=== PATIENT | male | born 1980 | race Caucasian/White ===

== ENCOUNTER 2021-05-06 09:15 | Emergency (ER) | payer BC, SELFPAY ==
[2021-05-06 09:40] VITALS: BP 127/73; PULSE 59; RESP 18; TEMP 36.6; O2SAT 99; BMI 23.7
--- NOTE | 2021-05-06 09:43 | DI.RAD.S_ITS ---
PROCEDURE: XR SHOULDER RT MIN 2V INDICATIONS: swelling, direct blow injury. TECHNIQUE: 4 views of the shoulder were acquired. COMPARISON: None. FINDINGS: Bones: There is a displaced and comminuted fracture of the superior scapular body. Remaining osseous structures intact. No suspicious bony lesions. Visualized ribs appear intact. Soft tissues: No suspicious soft tissue calcifications. IMPRESSION: Displaced and comminuted fracture of the superior scapular body. Dictated by: Ralph Lira M.D. on 05/06/2021 at 10:16 Approved by: Ralph Lira M.D. on 05/06/2021 at 10:17
--- NOTE | 2021-05-06 13:30 | ED_ITS ---
HPI - Extremity Injury (Upper) General Chief Complaint: Extremity Injury, Upper Stated Complaint: fell and hurt right shoulder last night Time Seen by Provider: 05/06/21 13:30 Source: patient Mode of arrival: Ambulatory Limitations: no limitations History of Present Illness HPI narrative: A 40-year-old healthy male with no known medical issues who lives in [facility]. Patient and his significant other were camping on 1 of the [facility] when he was sitting on a log and fell backwards about 1-2 T down onto hard packed dirt possibly a rock and had pain in his right shoulder. Patient has continued to have significant discomfort he denies any neck pain. He denies any midline pain. He does describes as in his scapula. It is worse with movement. He denies getting knocked out, loss of consciousness, no chest pain or shortness of breath, no nausea or vomiting. No numbness, tingling or weakness in his extremities. He does have increased pain with movement of his upper extremity particularly at the shoulder. Patient denies any major surgical interventions. No daily medications. He denies any allergies to medications Related Data Previous Rx's Medication Instructions Recorded hydrocodone 5 mg-acetaminophen 325 1 tab PO Q6H PRN #14 tab 05/06/21 mg tablet Allergies Allergy/AdvReac Type Severity Reaction Status Date / Time No Known Drug Allergies Allergy Verified 05/06/21 13:58 Review of Systems Review of Systems ROS Unobtainable: All systems reviewed & are unremarkable except as noted in HPI and below Patient History Social History Smoking Status: Never smoker Smoking Status: Never smoker alcohol intake frequency: 0-2 drinks per day Substance Use Type: marijuana Exam Narrative Exam Narrative: GEN: Patient appears in moderate distress. HEAD: No evidence of trauma, no raccoon/Heard sign. NECK: Nontender, painless range of motion, trachea midline Negative for Nexus criteria, there is no line tenderness, distracting injury, altered mental status, neuro deficit, recent EtOH. EYES: PERRLA, EOMI ENT: External inspection normal, trachea is midline, no dental or oral injury, airway is normal and with normal occlusion, No bony tenderness RESP: Chest is nontender and has symmetric movement, no ecchymosis, breath sounds are normal no crackles, wheezes or rales CVS: Heart sounds are normal, no murmur noted, No JVD. ABG/GI: Nontender, soft, normal bowel sounds, no distention, no organomegaly NEURO: Oriented AOx3, neuro is grossly intact, sensation and motor is normal all 4 extremities moving, cranial nerves II through XII are intact, GCS is 15 PSYCH: Normal mood and affect SKIN: Intact, warm and dry, no crepitus and without decubitus BACK: No CVA tenderness, no vertebral tenderness, no step-off's, no crepitus EXT: Atraumatic, except for tenderness over the right scapula. Patient does not have any other tenderness of his right upper extremity. Patient has full range of motion of his fingers, wrist, forearm and elbow. Hips are nontender, normal color and temperature, 2+ radial pulse. Patient has normal gait. Initial Vital Signs Initial Vital Signs: Vital Signs Temperature 97.9 F 05/06/21 09:40 Pulse Rate 59 L 05/06/21 09:40 Respiratory Rate 18 05/06/21 09:40 Blood Pressure 127/73 05/06/21 09:40 Pulse Oximetry 99 05/06/21 09:40 Course Orders Ordered: Discontinued Medications Hydrocodone Bitart/Acetaminophen (Hydrocodone/Acet 5/325 Tablet) 1 tab PO NOW ONE Stop: 05/06/21 13:32 Last Admin: 05/06/21 13:57 Dose: 1 tab Documented by: SOWMYA Consultations Consultation #1: Dr. Lazaro, with orthopedic surgery reviewed patient's films. Plan to follow-up outpatient. Conservative measures defers any CT imaging at this time. Vital Signs Vital signs: Vital Signs - 8 hr 05/06/21 14:41 Pulse Rate 54 L Respiratory Rate 16 Blood Pressure 122/84 Pulse Oximetry 99 MDM - Extremity Injury (Upper) Imaging Data Extremity x-ray #1: Radiologist's Impression: [address] [id number] ReportSigned Patient: Bria Mccurdy#: [id number]: 1980Acct:[id number]/Sex: 40 / MDate of Service: 05/06/21Loc: EDAccession Number: [id number] Procedure: XR shoulder RT min 2V Ordering Provider: Aaliyah Powell D.O. PROCEDURE: XR SHOULDER RT MIN 2V INDICATIONS: swelling, direct blow injury. TECHNIQUE: 4 views of the shoulder were acquired. COMPARISON: None. FINDINGS: Bones: There is a displaced and comminuted fracture of the superior scapular body. Remaining osseous structures intact. No suspicious bony lesions. Visualized ribs appear intact. Soft tissues: No suspicious soft tissue calcifications. IMPRESSION: Displaced and comminuted fracture of the superior scapular body. Dictated by: Ralph Lira M.D. on 05/06/2021 at 10:16 Approved by: Ralph Lira M.D. on 05/06/2021 at 10:17 MDM Narrative Medical decision making narrative: 40-year-old male with appears to be isolated scapular fracture with the low energy mechanism patient x-ray does show fracture. Patient is in sling currently. Patient was given Bowie here for pain. He lives in [place] and is returning in the next week. His is able to help him secure orthopedic follow-up she has a close connection with an office there locally but patient was also given referral here if needed. Velma ent was given a disc with the images. Return precautions. All questions answered. Discharge Plan Departure Patient Disposition: Home Clinical Impression: Closed fracture of right scapula Qualifiers: Encounter type: initial encounter Scapula location: body Fracture alignment: displaced Qualified Code(s): S42.111A - Displaced fracture of body of scapula, right shoulder, initial encounter for closed fracture Activity Restrictions/Additional Instructions: Follow-up with orthopedic surgery in the next week for recheck. If you have any issues the orthopedic surgeon that I spoke with today is also included below in the referrals. Your imaging today does show a scapular fracture. Take pain medication as prescribed. This medication can make you sleepy do not drive, perform hazardous activities or make any major decisions while taking it. This medication will make you constipated please take a stool softener once to twice daily until stools are soft and regular. Prescription sent to [facility] and anti Cordis Splint Care: Use for 15-20 minutes each time, for 5-6x per day. If you develop worsening pain, numbness, tingling, discoloration of the affected body part, adjust the sling, and either see your doctor for an urgent re-assessment, or return to the Emergency Department. Return to the Emergency Department for any new or worsening symptoms, lightheadedness or passing out, new chest pain or shortness of breath, persistent vomiting, new bruising, numbness or tingling of extremities or a new weakness or other new or concerning symptoms. Prescriptions: New hydrocodone-acetaminophen 5-325 mg tablet 1 tab PO Q6H PRN (Reason: pain) Qty: 14 RF: 0 Referrals: Ashlyn Lazaro MD [Physician] -
[2021-05-06] MEDS: HYDROCODONE/ACET 5/325 TABLET 1 TAB PO (13:57)
[2021-05-06 14:41] VITALS: BP 122/84; PULSE 54; RESP 16; O2SAT 99
== END 2021-05-06 14:43 | disposition home or self-care (01) ==
PROVIDERS: Emergency Provider Emergency Medicine
DX: S42.111A Displaced fracture of body of scapula, right shoulder, initial encounter for closed fracture (principal); W18.30XA Fall on same level, unspecified, initial encounter
CPT/HCPCS: 73030; 99283